=== PATIENT | male | born 1935 | race Caucasian/White ===

== ENCOUNTER 2017-05-13 09:04 | Emergency (ER) | payer MEDICARE ==
[~2017-05-13] VITALS: Ht 172.7 cm; Wt 74.0 kg
[~2017-05-13 09:04] MED LIST: AMLO5TAB96 PO; ASPI325T PO; FOLI1TAB PO; GEMF600 PO; LISI-357 PO; NIAS10004 PO; ROSU10 PO; TOPR25TA2 PO
[2017-05-13 09:08] VITALS: BP 156/71; PULSE 56; RESP 16; TEMP 97.6; O2SAT 96
[2017-05-13 09:37] VITALS: BP 130/76; PULSE 54; RESP 18; O2SAT 97; O2SAT 98
[2017-05-13 09:56] LABS: AUTOMATED NEUTROPHIL # 9.4 TH/MM3 (1.8-7.7); BASOPHIL # 0.1 TH/MM3 (0-0.2); BASOPHIL % 0.5 % (0.0-2.0); EOSINOPHIL # 0.6 TH/MM3 (0-0.4); EOSINOPHIL % 4.9 % (0.0-4.0); HEMATOCRIT 39.2 % (39.0-51.0); HEMO FLAGS DIFF FINAL; LYMPH % 8.3 % (9.0-44.0); MEAN CELL VOLUME 89.9 FL (80.0-100.0); MEAN CORPUSCULAR HEMOGLOBIN 30.1 PG (27.0-34.0); MEAN CORPUSCULAR HGB CONC 33.5 % (32.0-36.0); MONO % 8.2 % (0.0-8.0); NEUT % 78.1 % (16.0-70.0); PLATELET COUNT 214 TH/MM3 (150-450); RED BLOOD COUNT 4.36 MIL/MM3 (4.50-5.90); RED CELL DISTRIBUTION WIDTH 14.4 % (11.6-17.2)
[2017-05-13] MEDS ORDERED: SODIUM CHLORID 0.9% 500 ML INJ 500 ML IV ONE (10:00)
--- NOTE | 2017-05-13 10:00 | PD ---
HPI Chief Complaint: Pain: Acute or Chronic Time Seen by Provider: 09:32 Travel History International Travel<30 days: No Contact w/Intl Traveler<30days: No Traveled to known affect area: No History of Present Illness HPI 81-year-old male states for the past couple of months he has been feeling generally ill and not himself. He does state he has a little bit of congestion and notes pain all over. He states that he is not having any abdominal pain at this moment. He did tell nursing staff he felt a little short of breath but to me denies this. He denies any specific chest pain or fever as well. Quality is ill feeling. Severity he states all over. He states it is been worse over the past week. He denies specific modifying factors. He states he's had a heart attack before but it does not feel like this. [facility] Past Medical History Narrative Medical By records Cardiovascular Problems: Yes ([place] in 1997) Genitourinary: Yes (Kidney disease stage IV) Immunizations Current: Yes Past Surgical History Narrative Surgical By records Surgical History: No Previous Surgery Social History Alcohol Use: Yes (on occasion) Tobacco Use: No Substance Use: No Allergies-Medications (Allergen,Severity, Reaction): Coded Allergies: Iodine (Verified Allergy, Severe, 05/01/16) Shellfish (Verified Allergy, Unknown, 05/01/16) Reported Meds & Prescriptions Reported Meds & Active Scripts Active Reported Folate (Folic Acid) 1 Mg Tab 1 Mg PO HS Aspirin 325 Mg Tab 325 Mg PO HS Niaspan Er (Niacin) 1,000 Er Tab 2,000 Mg PO HS Lopid (Gemfibrozil) 600 Mg Tab 600 Mg PO HS Toprol Xl (Metoprolol Succinate) 25 Mg Tabcr 25 Mg PO HS Crestor (Rosuvastatin Calcium) 10 Mg Tab 10 Mg PO HS Lisinopril 5 mg (Lisinopril) 5 Mg Tab 5 Mg PO DAILY Norvasc (Amlodipine Besylate) 5 Mg Tab 5 Mg PO BID Review of Systems ROS Limitations: Poor Historian Except as stated in HPI: all other systems reviewed are Neg Physical Exam Exam Limitations: Poor Historian Narrative GENERAL: Well-nourished, well-developed patient. SKIN: Warm and dry. HEAD: Normocephalic and atraumatic. EYES: No injection or drainage. ENT: No nasal drainage noted. NECK: Supple, trachea midline. CARDIOVASCULAR: Regular rate and rhythm RESPIRATORY: Breath sounds equal bilaterally. No accessory muscle use. GASTROINTESTINAL: Abdomen soft, non-tender, nondistended. NEUROLOGICAL: Awake and alert. Moves all extremities. Normal speech. Data Data Last Documented VS Vital Signs Date Time Temp Pulse Resp B/P Pulse Ox O2 Delivery O2 Flow Rate FiO2 05/13/17 09:37 54 18 130/76 97 Room Air 05/13/17 09:08 97.6 Orders Complete Blood Count With Diff (05/13/17 09:32) Comprehensive Metabolic Panel (05/13/17 09:32) Urinalysis - C+S If Indicated (05/13/17 09:32) Lipase (05/13/17 09:32) Ct Abd/Pel W/O Iv Contrast (05/13/17 ) Iv Access Insert/Monitor (05/13/17 09:32) Oximetry (05/13/17 09:32) Chest, Single Ap (05/13/17 ) Influenzae A/B Antigen (05/13/17 09:39) Creatine Kinase (Cpk) (05/13/17 09:40) Electrocardiogram (05/13/17 ) Troponin I (05/13/17 09:47) Sodium Chlorid 0.9% 500 Ml Inj (Ns 500 M (05/13/17 10:00) Cath For Specimen (05/13/17 10:52) Labs Laboratory Tests Test 05/13/17 05/13/17 09:35 10:58 White Blood Count 12.0 TH/MM3 Red Blood Count 4.36 MIL/MM3 Hemoglobin 13.1 GM/DL Hematocrit 39.2 % Mean Corpuscular Volume 89.9 FL Mean Corpuscular Hemoglobin 30.1 PG Mean Corpuscular Hemoglobin 33.5 % Concent Red Cell Distribution Width 14.4 % Platelet Count 214 TH/MM3 Mean Platelet Volume 7.2 FL Neutrophils (%) (Auto) 78.1 % Lymphocytes (%) (Auto) 8.3 % Monocytes (%) (Auto) 8.2 % Eosinophils (%) (Auto) 4.9 % Basophils (%) (Auto) 0.5 % Neutrophils # (Auto) 9.4 TH/MM3 Lymphocytes # (Auto) 1.0 TH/MM3 Monocytes # (Auto) 1.0 TH/MM3 Eosinophils # (Auto) 0.6 TH/MM3 Basophils # (Auto) 0.1 TH/MM3 CBC Comment DIFF FINAL Differential Comment Sodium Level 142 MEQ/L Potassium Level 4.6 MEQ/L Chloride Level 111 MEQ/L Carbon Dioxide Level 23.8 MEQ/L Anion Gap 7 MEQ/L Blood Urea Nitrogen 53 MG/DL Creatinine 3.19 MG/DL Estimat Glomerular Filtration 19 ML/MIN Rate Random Glucose 121 MG/DL Calcium Level 9.1 MG/DL Total Bilirubin 0.4 MG/DL Aspartate Amino Transf 17 U/L (AST/SGOT) Alanine Aminotransferase 23 U/L (ALT/SGPT) Alkaline Phosphatase 78 U/L Total Creatine Kinase 99 U/L Troponin I LESS THAN 0.02 NG/ML Total Protein 6.6 GM/DL Albumin 3.4 GM/DL Lipase 388 U/L Urine Color YELLOW Urine Turbidity CLEAR Urine pH 5.5 Urine Specific Maskell 1.011 Urine Protein 100 mg/dL Urine Glucose (UA) NEG mg/dL Urine Ketones NEG mg/dL Urine Occult Blood NEG Urine Nitrite NEG Urine Bilirubin NEG Urine Urobilinogen LESS THAN 2.0 MG/DL Urine Leukocyte Esterase NEG Urine RBC 1 /hpf Urine WBC 1 /hpf Urine Bacteria RARE /hpf Urine Mucus FEW /lpf Microscopic Urinalysis Comment CULT NOT INDICATED MDM Medical Decision Making Medical Screen Exam Complete: Yes Emergency Medical Condition: Yes Medical Record Reviewed: Yes (past history confirmed) Interpretation(s) EKG is sinus bradycardia at [address] segment elevation or depression, T wave inversion V1 V2 CBC & BMP Diagram 05/13/17 09:35 Last 24 hours Impressions Chest X-Ray 05/13/17 0000 Signed Impressions: Service Date/Time: Saturday, May 13, 2017 10:04 - CONCLUSION: 1. No acute cardiopulmonary disease. Chemo Rm MD Abdomen/Pelvis CT 05/13/17 0000 Signed Impressions: Service Date/Time: Saturday, May 13, 2017 10:45 - CONCLUSION: Multiple masses scattered throughout the kidneys including one hyperdense nodule midpole left kidney likely complicated cyst. Neither collecting system or ureter is dilated. No active ureteral stone is seen. I would question a ureterocele at the right UPJ. Markos Maria MD Differential Diagnosis UTI, anemia, worsening renal failure, electrolyte abnormality, rhabdomyolysis, pneumonia, stone Narrative Course Will check blood work, urinalysis, CT abdomen, chest x-ray and reevaluate ed workup with mild isolated leukocytosis without other findings. Patient has been having these symptoms over the past couple of months. He is already followed with his primary he states 1 week ago and had blood work done. Patient denies any new complaints, all questions answered. Patient knows that follow up is incumbent on them and to return to the emergency room immediately if new or worsening symptoms develop. Patient given strict return precautions, vitals reviewed and are normal, agrees to further workup as an outpatient. Diagnosis Primary Impression: General ill feeling Patient Instructions: General Instructions Additional Instructions: return as needed, follow with primary tommorrow Med/Other Pt SpecificInfo: No Change to Meds Disposition: 01 DISCHARGE HOME Condition: Stable Phylicia Huff MD May 13, 2017 10:00
[2017-05-13 10:18] LABS: ANION GAP 7 MEQ/L (5-15); AST (GOT) 17 U/L (15-37); BICARBONATE 23.8 MEQ/L (21.0-32.0); BLOOD UREA NITROGEN 53 MG/DL (7-18); CHLORIDE 111 MEQ/L (98-107); GLOMERULAR FILTRATION RATE 19 ML/MIN (>89); POTASSIUM 4.6 MEQ/L (3.5-5.1); SODIUM (NA) 142 MEQ/L (136-145)
[2017-05-13 10:20] LABS: ALT (GPT) 23 U/L (12-78)
[2017-05-13 10:21] LABS: ALKALINE PHOSPHATASE 78 U/L (45-117); TOTAL BILIRUBIN ADULT 0.4 MG/DL (0.2-1.0)
--- NOTE | 2017-05-13 10:37 | RADRPT ---
EXAM DATE/TIME: 05/13/2017 10:04 [facility] COMPARISON: CHEST SINGLE AP, May 01, 2016, 21:20. INDICATIONS : Short of breath. MEDICAL HISTORY : Myocardial infarction. Stage 4 kidney failure. SURGICAL HISTORY : coronary artery stents x2 ENCOUNTER: Initial ACUITY: 1 day PAIN SCORE: 0/10 LOCATION: Bilateral chest FINDINGS: A single view of the chest demonstrates the lungs to be symmetrically aerated without evidence of mas s, infiltrate or effusion. The cardiomediastinal contours are unremarkable. Osseous structures are intact. CONCLUSION: 1. No acute cardiopulmonary disease. Chemo Rm MD on May 13, 2017 at 10:34 Board Certified Radiologist. This report was verified electronically.
[2017-05-13 11:13] LABS: BACTERIA, URINE RARE /hpf; BLOOD, URINE NEG (NEG); GLUCOSE,URINE NEG (NEG); KETONE, URINE NEG (NEG); MUCUS URINE FEW /lpf (OCC); NITRITE,URINE NEG (NEG); PH, URINE 5.5 (5.0-8.5); URINE COLOR YELLOW (YELLW/STRAW)
[2017-05-13 11:16] LABS: COMMENT (UR) CULT NOT INDICATED; CULTURE IF INDICATED CULT NOT INDICATED
--- NOTE | 2017-05-13 11:30 | RADRPT ---
EXAM DATE/TIME: 05/13/2017 10:45 [facility] COMPARISON: No previous studies available for comparison. INDICATIONS : Abdominal pain. ORAL CONTRAST: No oral contrast ingested. RADIATION DOSE: 7.68 CTDIvol (mGy) MEDICAL HISTORY : Cardiovascular disease. Renal disease, end stage. SURGICAL HISTORY : None. ENCOUNTER: Initial ACUITY: 1 day PAIN SCALE: 0/10 LOCATION: Abdomen TECHNIQUE: Volumetric scanning of the abdomen and pelvis was performed. Using automated exposure control and adjustment of the mA and/or kV according to patient size, radiation dose was kept as low as reasonably achievable to obtain optimal diagnostic quality images. DICOM format image data is av ailable electronically for review and comparison. FINDINGS: CT scan without contrast demonstrates there is some fullness of the GE junction, difficult to rule ou t a hiatal hernia. There are multiple hyperdense masses scattered throughout both kidneys likely benign cysts. There is one hyperdense nodule midpole left kidney likely a dense cyst. That measures 1.7 cm x 2.1 cm across . Neither of the renal collecting systems are appreciably dilated. I do not see any calcifications along the course of either ureter. There may be a small ureterocele on the right. There is atherosclerotic disease without evidence of aneurysm. Mild degenerative arthritis lower lum bar spine. CONCLUSION: Multiple masses scattered throughout the kidneys including one hyperdense nodule midpole left kidney likely complicated cyst. Neither collecting system or ureter is dilated. No active ureteral stone i s seen. I would question a ureterocele at the right UPJ. Markos Maria MD on May 13, 2017 at 11:17 Board Certified Radiologist. This report was verified electronically.
--- NOTE | 2017-05-13 14:01 | EKG ---
Date Performed: 05/13/2017 Time Performed: 09:51:50 PTAGE: 81 years EKG: SINUS BRADYCARDIA LOW QRS VOLTAGE IN EXTREMITY LEADS SEPTAL MYOCARDIAL INFARCTION MODERATE T-WAVE ABNORMALITY, CONSIDER ANTERIOR ISCHEMIA ABNORMAL ECG PREVIOUS TRACING : 05/13/2017 09.49 Compared to the previous tracing, T wave changes anteriorly are new DOCTOR: Deshawn Armenta Interpretating Date/Time 05/13/2017 13:59:23
== END 2017-05-13 12:15 | disposition home or self-care (01) ==
LOC: NEPC 09:04
DX: D72.829 Elevated white blood cell count, unspecified (principal); R00.1 Bradycardia, unspecified; N18.4 Chronic kidney disease, stage 4 (severe); I21.3 ST elevation (STEMI) myocardial infarction of unspecified site; R94.31 Abnormal electrocardiogram [ECG] [EKG]; I25.2 Old myocardial infarction; Z79.82 Long term (current) use of aspirin; Z79.899 Other long term (current) drug therapy
CPT/HCPCS: 71010; 74176; 80053; 81001; 82550; 83690; 84484; 85025; 87804; 93005; 99285; J7040; P9612

== ENCOUNTER 2017-06-06 17:46 | Observation (INO) | payer MEDICARE ==
[~2017-06-06] VITALS: Ht 177.8 cm; Wt 75.0 kg
[2017-06-06 17:47] VITALS: BP 202/91; PULSE 64; RESP 12; TEMP 98.6; O2SAT 98
--- NOTE | 2017-06-06 17:58 | PD ---
Physical Exam Date Seen by Provider: Jun 06, 2017 Time Seen by Provider: 17:55 Data Data Last Documented VS Vital Signs Date Time Temp Pulse Resp B/P Pulse Ox O2 Delivery O2 Flow Rate FiO2 06/06/17 17:47 98.6 64 12 202/91 98 MDM Supervised Visit with TANYA: No Narrative Course 82 YO M with complaint of SOB and CP. Onset this AM. States "I feel better now." Pain /10. Denies long period of immobilization. ASA daily. HX [place], CKD stage 4. [employer] Daniella. Vitals reviewed. Patient seen in triage, awaiting priority bed placement. Yue White Jun 06, 2017 17:58
[2017-06-06 18:45] LABS: AUTOMATED NEUTROPHIL # 7.8 TH/MM3 (1.8-7.7); BASOPHIL # 0.1 TH/MM3 (0-0.2); BASOPHIL % 0.5 % (0.0-2.0); EOSINOPHIL # 0.5 TH/MM3 (0-0.4); EOSINOPHIL % 4.6 % (0.0-4.0); HEMATOCRIT 39.3 % (39.0-51.0); HEMO FLAGS DIFF FINAL; LYMPH % 12.6 % (9.0-44.0); LYMPHOCYTE # 1.4 TH/MM3 (1.0-4.8); MEAN CELL VOLUME 88.9 FL (80.0-100.0); MEAN CORPUSCULAR HEMOGLOBIN 30.9 PG (27.0-34.0); MEAN CORPUSCULAR HGB CONC 34.8 % (32.0-36.0); MONO % 10.3 % (0.0-8.0); PLATELET COUNT 201 TH/MM3 (150-450); RED BLOOD COUNT 4.42 MIL/MM3 (4.50-5.90); WHITE BLOOD COUNT 10.8 TH/MM3 (4.0-11.0)
[2017-06-06 19:03] LABS: ANION GAP 8 MEQ/L (5-15); BICARBONATE 23.7 MEQ/L (21.0-32.0); BLOOD UREA NITROGEN 64 MG/DL (7-18); CHLORIDE 107 MEQ/L (98-107); GLOMERULAR FILTRATION RATE 17 ML/MIN (>89); POTASSIUM 4.7 MEQ/L (3.5-5.1); SODIUM (NA) 139 MEQ/L (136-145)
--- NOTE | 2017-06-06 19:46 | PD ---
HPI Chief Complaint: Chest Pain Time Seen by Provider: 19:46 Travel History International Travel<30 days: No Contact w/Intl Traveler<30days: No Traveled to known affect area: No History of Present Illness HPI 82 year old male with history of CAD, stent placement 2 in 1997, CKD4, hypertension presents to the ED for evaluation of acute onset left sided pain inferior to his scapula. Pt states it began this morning while he was golfing. Was severe at that time with associated shortness of breath and mild nausea. He states it has persisted intermittently throughout the day but seems to not be as severe. Currently he states it is very dull intermittent pain when it does occur rating it a 1 out of 10. It is not reproducible with movement. Patient has had no injury. Denies any abdominal pain. No changes in bowel or bladder. No recent illnesses, fever, or chills. No other symptoms to report. PFSH Past Medical History Cardiovascular Problems: Yes Genitourinary: Yes (Kidney disease stage IV) Immunizations Current: Yes Social History Alcohol Use: Yes (on occasion) Tobacco Use: No Substance Use: No Allergies-Medications (Allergen,Severity, Reaction): Coded Allergies: Iodine (Verified Allergy, Severe, 05/01/16) Shellfish (Verified Allergy, Unknown, 05/01/16) Reported Meds & Prescriptions Reported Meds & Active Scripts Active Reported Isosorbide Mononitrate 20 Mg Tab 20 Mg PO BID Take 2 doses 7 hours apart. Hydralazine (Hydralazine HCl) 100 Mg Tab 50 Mg PO BID Take with meals Coreg (Carvedilol) 6.25 Mg Tab 6.25 Mg PO BID Crestor (Rosuvastatin Calcium) 10 Mg Tab 10 Mg PO HS Lisinopril 5 Mg Tab 5 Mg PO DAILY Folic Acid 400 Mcg Tab 1 Mg PO HS Aspirin 325 Mg Tab 325 Mg PO HS Norvasc (Amlodipine Besylate) 5 Mg Tab 5 Mg PO BID Review of Systems Except as stated in HPI: all other systems reviewed are Neg Physical Exam Narrative GENERAL: Well-nourished male patient, in no acute distress SKIN: Focused skin assessment warm/dry. HEAD: Atraumatic. Normocephalic. EYES: Pupils equal and round. No scleral icterus. No injection or drainage. ENT: No nasal bleeding or discharge. Mucous membranes pink and moist. NECK: Trachea midline. No JVD. CARDIOVASCULAR: Regular rate and rhythm. RESPIRATORY: No accessory muscle use. Clear to auscultation. Breath sounds equal bilaterally. GASTROINTESTINAL: Abdomen soft, non-tender, nondistended. Hepatic and splenic margins not palpable. MUSCULOSKELETAL: No obvious deformities. No clubbing. No cyanosis. No edema. NEUROLOGICAL: Awake and alert. No obvious cranial nerve deficits. Motor grossly within normal limits. Normal speech. PSYCHIATRIC: Appropriate mood and affect; insight and judgment normal. Data Data Last Documented VS Vital Signs Date Time Temp Pulse Resp B/P Pulse Ox O2 Delivery O2 Flow Rate FiO2 06/06/17 19:57 72 16 97 Room Air 06/06/17 19:54 98.5 178/91 Orders Electrocardiogram (06/06/17 17:59) Complete Blood Count With Diff (06/06/17 17:59) Basic Metabolic Panel (Bmp) (06/06/17 17:59) Ckmb (Isoenzyme) Profile (06/06/17 17:59) Troponin I (06/06/17 17:59) Lipase (06/06/17 19:55) Chest, Single Ap (06/06/17 ) Us Abdomen Gallbladder (06/06/17 ) Morphine Inj (Morphine Inj) (06/06/17 20:45) Ondansetron Inj (Zofran Inj) (06/06/17 20:45) Admit Order (Ed Use Only) (06/06/17 21:59) Activity Bed Rest With Brp (06/06/17 21:59) Vital Signs (Adult) Q4H (06/06/17 21:59) Cardiac Rhythm .As Directed (06/06/17 21:59) Notify Dr: Other .PRN (06/06/17 21:59) Notify Dr. Parameters (06/06/17 21:59) Resp Oxygen Nasal Cannula (06/06/17 ) Diet Npo (06/07/17 Breakfast) Ckmb (Isoenzyme) Profile (06/06/17 21:59) Ckmb (Isoenzyme) Profile (06/07/17 00:59) Troponin I (06/06/17 21:59) Troponin I (06/07/17 00:59) Electrocardiogram (06/06/17 21:59) Electrocardiogram (06/07/17 00:59) ^ Obtain (06/06/17 21:59) Sodium Chloride 0.9% Flush (Ns Flush) (06/06/17 22:00) Sodium Chloride 0.9% Flush (Ns Flush) (06/07/17 09:00) Acetaminophen (Tylenol) (06/06/17 22:00) Ondansetron Inj (Zofran Inj) (06/06/17 22:00) Nitroglycerin Sl (Nitrostat Sl) (06/06/17 22:00) Aspirin Chew (Aspirin Chew) (06/06/17 22:00) Departmental Secretary / Telemetry DIETER.Q8H (06/06/17 21:59) Labs Laboratory Tests Test 06/06/17 18:09 White Blood Count 10.8 TH/MM3 Red Blood Count 4.42 MIL/MM3 Hemoglobin 13.7 GM/DL Hematocrit 39.3 % Mean Corpuscular Volume 88.9 FL Mean Corpuscular Hemoglobin 30.9 PG Mean Corpuscular Hemoglobin 34.8 % Concent Red Cell Distribution Width 14.0 % Platelet Count 201 TH/MM3 Mean Platelet Volume 7.2 FL Neutrophils (%) (Auto) 72.0 % Lymphocytes (%) (Auto) 12.6 % Monocytes (%) (Auto) 10.3 % Eosinophils (%) (Auto) 4.6 % Basophils (%) (Auto) 0.5 % Neutrophils # (Auto) 7.8 TH/MM3 Lymphocytes # (Auto) 1.4 TH/MM3 Monocytes # (Auto) 1.1 TH/MM3 Eosinophils # (Auto) 0.5 TH/MM3 Basophils # (Auto) 0.1 TH/MM3 CBC Comment DIFF FINAL Differential Comment Sodium Level 139 MEQ/L Potassium Level 4.7 MEQ/L Chloride Level 107 MEQ/L Carbon Dioxide Level 23.7 MEQ/L Anion Gap 8 MEQ/L Blood Urea Nitrogen 64 MG/DL Creatinine 3.48 MG/DL Estimat Glomerular Filtration 17 ML/MIN Rate Random Glucose 109 MG/DL Calcium Level 9.1 MG/DL Total Creatine Kinase 100 U/L Troponin I LESS THAN 0.02 NG/ML Lipase 402 U/L MDM Medical Decision Making Medical Screen Exam Complete: Yes Emergency Medical Condition: Yes Medical Record Reviewed: Yes Differential Diagnosis ACS versus visceral pain versus pleuritic pain versus chest wall pain versus musculoskeletal pain Narrative Course 82-year-old male presents to emergency department for evaluation of a pain inferior to his left scapula with associated shortness of breath and nausea. The pain is not reproducible on assessment. Patient appears overall well and without distress. Patient has history of cardiac disease. Patient content director is Dr. Brewer. Laboratory Tests Test 06/06/17 18:09 White Blood Count 10.8 TH/MM3 Red Blood Count 4.42 MIL/MM3 Hemoglobin 13.7 GM/DL Hematocrit 39.3 % Mean Corpuscular Volume 88.9 FL Mean Corpuscular Hemoglobin 30.9 PG Mean Corpuscular Hemoglobin 34.8 % Concent Red Cell Distribution Width 14.0 % Platelet Count 201 TH/MM3 Mean Platelet Volume 7.2 FL Neutrophils (%) (Auto) 72.0 % Lymphocytes (%) (Auto) 12.6 % Monocytes (%) (Auto) 10.3 % Eosinophils (%) (Auto) 4.6 % Basophils (%) (Auto) 0.5 % Neutrophils # (Auto) 7.8 TH/MM3 Lymphocytes # (Auto) 1.4 TH/MM3 Monocytes # (Auto) 1.1 TH/MM3 Eosinophils # (Auto) 0.5 TH/MM3 Basophils # (Auto) 0.1 TH/MM3 CBC Comment DIFF FINAL Differential Comment Sodium Level 139 MEQ/L Potassium Level 4.7 MEQ/L Chloride Level 107 MEQ/L Carbon Dioxide Level 23.7 MEQ/L Anion Gap 8 MEQ/L Blood Urea Nitrogen 64 MG/DL Creatinine 3.48 MG/DL Estimat Glomerular Filtration 17 ML/MIN Rate Random Glucose 109 MG/DL Calcium Level 9.1 MG/DL Total Creatine Kinase 100 U/L Troponin I LESS THAN 0.02 NG/ML Lipase 402 U/L Last Impressions Gall Bladder Ultrasound 06/06/17 0000 Signed Impressions: Service Date/Time: Tuesday, June 06, 2017 20:21 - CONCLUSION: 1. No gallstones or biliary ductal dilatation. Multiple right renal cysts. Feroz Reich MD Chest X-Ray 06/06/17 0000 Signed Impressions: Service Date/Time: Tuesday, June 06, 2017 20:02 - CONCLUSION: No acute disease. No significant change has occurred. Feroz Reich MD Due to patient's history of cardiac disease, comorbidities, and atypical chest pain presentation, patient will be admitted observation to the chest pain center for further evaluation. Plan is discussed with the patient who is in agreement with this plan of care. Diagnosis Primary Impression: Atypical chest pain Additional Impression: Chronic kidney disease Qualified Code: N18.4 - Stage 4 chronic kidney disease Admitting Information Admitting Physician Requests: Observation Condition: Stable Precious Milner Jun 06, 2017 19:46
[2017-06-06] MEDS ORDERED: LISI-519 PO (19:51)
[2017-06-06] MEDS ORDERED: ROSU10 PO (19:51)
[2017-06-06] MEDS ORDERED: AMLO5 PO (19:51)
[2017-06-06] MEDS ORDERED: ASPI325T PO (19:51)
[2017-06-06] MEDS ORDERED: FOLI400T PO (19:51)
[2017-06-06] MEDS ORDERED: CARV6.25 PO (19:53)
[2017-06-06] MEDS ORDERED: HYDR-3801 PO (19:53)
[2017-06-06 19:54] VITALS: BP 178/91; PULSE 64; RESP 16; TEMP 98.5; O2SAT 97
[2017-06-06] MEDS ORDERED: ISOS20TA PO (20:18)
[2017-06-06] MEDS ORDERED: ONDANSETRON HCL 4 MG/2 ML VIAL IV PUSH ONE (20:45)
[2017-06-06] MEDS ORDERED: MORPHINE SULFATE 4 MG/ML INJ IV PUSH ONE (20:45)
--- NOTE | 2017-06-06 20:58 | RADRPT ---
EXAM DATE/TIME: 06/06/2017 20:02 [facility] COMPARISON: CHEST SINGLE AP, May 13, 2017, 10:04. INDICATIONS : Chest pain. MEDICAL HISTORY : None. SURGICAL HISTORY : None. ENCOUNTER: Initial ACUITY: 2 months PAIN SCORE: 1/10 LOCATION: Left chest Backside FINDINGS: A single view of the chest demonstrates the lungs to be symmetrically aerated without evidence of mas s, infiltrate or effusion. The cardiomediastinal contours are unremarkable. Osseous structures are intact. CONCLUSION: No acute disease. No significant change has occurred. Feroz Reich MD on June 06, 2017 at 20:57 Board Certified Radiologist. This report was verified electronically.
--- NOTE | 2017-06-06 21:13 | RADRPT ---
EXAM DATE/TIME: 06/06/2017 20:21 [facility] COMPARISON: No previous studies available for comparison. INDICATIONS : Nausea and vomiting. MEDICAL HISTORY : Hypercholesterolemia. Hypertension. Myocardial infarction. Kidney disease, stage IV. SURGICAL HISTORY : CABG. TURP. ENCOUNTER: Initial ACUITY: 1 day PAIN SCORE: 2/10 LOCATION: Right upper quadrant MEASUREMENTS: LIVER: 15.9 cm length COMMON DUCT: 3 mm RIGHT KIDNEY: 10.2 x 4.6 x 5.0 cm FINDINGS: LIVER: Normal echotexture without focal lesion or ductal dilatation. COMMON DUCT: No intraluminal mass or stone visualized. GALLBLADDER: Contains no stones, demonstrates no wall thickening or pericholecystic fluid. PANCREAS: The visualized portions are within normal limits. RIGHT KIDNEY: No evidence of hydronephrosis, stone, or mass. Multiple cysts measuring up to 2.5 cm upper pole and 1.4 cm lower pole. CONCLUSION: 1. No gallstones or biliary ductal dilatation. Multiple right renal cysts. Feroz Reich MD on June 06, 2017 at 21:09 Board Certified Radiologist. This report was verified electronically.
[2017-06-06 21:50] LABS: CREATINE KINASE 100 U/L (39-308)
[2017-06-06] MEDS ORDERED: ACETAMINOPHEN 500 MG CPLT PO PRN (22:00)
[2017-06-06] MEDS ORDERED: NITROGLYCERIN 0.4 MG SL 25 TABS/BTL SL PRN (22:00)
[2017-06-06] MEDS ORDERED: ASPIRIN 81 MG CHEW TAB PO ONE (22:00)
[2017-06-06] MEDS ORDERED: ONDANSETRON HCL 4 MG/2 ML VIAL IV PRN (22:00)
[2017-06-06] MEDS ORDERED: SODIUM CHLORIDE 0.9% FLUSH 10 ML FLUSH IV FLUSH PRN (22:00)
[2017-06-06 22:26] VITALS: O2SAT 97
[2017-06-06 22:29] VITALS: BP 162/73
[2017-06-06 23:02] VITALS: BP 161/83; PULSE 69; RESP 18; TEMP 97.9; O2SAT 97
[2017-06-07] VITALS (9 sets, daily range): BP systolic 134–172; BP diastolic 72–92; PULSE 64–72; RESP 18; TEMP 97.9–98.4; O2SAT 96–98
[2017-06-07 01:56] LABS: CREATINE KINASE 102 U/L (39-308)
[2017-06-07 02:08] LABS: CKMB 2.9 NG/ML (0.5-3.6)
--- NOTE | 2017-06-07 08:54 | HHI.HP ---
HPI Primary Care Physician hCu Britton MD Chief Complaint Left scapular pain History of Present Illness 82-year-old male with history of coronary artery disease including 2 cardiac stents, reported CKD stage 4, and hypertension presents to emergency room for further evaluation of left scapula pain and dyspnea. Onset yesterday morning 8 AM during warmup before golf. Location left scapular area. Described as a dull ache. Denying sharp pain. Cannot remember if pain came on quickly or gradually. No radiation. Associated symptoms included dyspnea. Endorses exertional dyspnea for many months accompanied with fatigue stating yesterday episode more severe. Denied nausea, vomiting, or diaphoresis. No known precipitating or relieving factors. He did not complete golf game, returning home to rest. Dyspnea episode lasted 2 hours. Scapula pain waxed and waned in intensity and frequency throughout day. Reports similar discomforts over the past few months with no predicability, varying in intensity and duration. Review of Systems General: Fatigue and generalized malaise for months. Relates fatigue and malaise to chronic kidney disease. No weakness, fever, chills, or recent illness. HEENT: No MEDLEY, no vision changes CV: As stated above. Denies any current chest pain, pressure, or left scapular pain. RESP: Exertional dyspnea for "many months." Yesterday's episode of dyspnea more severe than other episodes and breathing did not improved for nearly 2 hours. Currently no SOB. No cough, wheeze, or recent URI. GI: No nausea, vomiting, bowel changes, diarrhea, constipation, or pain. : No dysuria. Turp x2 EXT: No lower leg edema MS: No discomfort or change in ROM NEURO: No difficulty with balance, LOC, motor/sensory deficits PSYCH: No anxiety, depression, or situation stress Past Family Social History Allergies: Coded Allergies: Iodine (Verified Allergy, Severe, 05/01/16) Shellfish (Verified Allergy, Unknown, 05/01/16) Past Medical History CAD, x2 cardiac stents, CKD stage 4, HTN, [place] Past Surgical History TURPx2, skin cancer removal, bilateral cataract surgery Reported Medications Active Reported Isosorbide Mononitrate 30 mg QD Hydralazine (Hydralazine HCl) 100 Mg Tab 50 Mg PO BID Take with meals Coreg (Carvedilol) 6.25 Mg Tab 6.25 Mg PO BID Crestor (Rosuvastatin Calcium) 10 Mg Tab 10 Mg PO HS Lisinopril 10 Mg PO DAILY Folic Acid 400 Mcg Tab 1 Mg PO HS Aspirin 325 Mg Tab 325 Mg PO HS Norvasc (Amlodipine Besylate) 5 Mg Tab 5 Mg PO BID Vitamin D3 PO daily Active Ordered Medications Current Medications Medications (Trade) Dose Ordered Sig/Víctor Route Start Time Stop Time Status Last Admin (NS Flush) 2 ml UNSCH PRN IV FLUSH 06/06/17 22:00 (NS Flush) 2 ml BID IV FLUSH 06/07/17 09:00 (Tylenol) 500 mg Q4H PRN PO 06/06/17 22:00 (Zofran Inj) 4 mg Q6H PRN IV 06/06/17 22:00 (Nitrostat Sl) 0.4 mg Q5M PRN SL 06/06/17 22:00 Social History Known CAD, HTN, and hyperlipidemia. No known diabetes. Quit smoking 1971. Denies any alcohol or illegal drug use. Attempts to live a healthy and active lifestyle, although states over the last few months have decreased. Retired, . Past Cardiac Testing Nuclear treadmill 12-18months ago. 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 Pastrana) Conculsion 1. Mild diffuse disease of LAD artery. 2. Mild disease of circumflex and right coronary arteries co-dominate vessels. 3. Patent stent in obtuse marginal branch of left circumflex. Physical Exam Vital Signs Vital Signs Date Time Temp Pulse Resp B/P Pulse Ox O2 Delivery O2 Flow Rate FiO2 06/07/17 07:24 97.9 67 18 159/90 96 06/07/17 04:29 67 06/07/17 03:35 98.4 64 18 134/84 96 06/07/17 00:31 72 06/06/17 23:02 97.9 69 18 161/83 97 06/06/17 22:29 66 16 162/73 99 06/06/17 22:26 97 06/06/17 19:57 72 16 97 Room Air 06/06/17 19:54 98.5 64 16 178/91 97 Room Air 06/06/17 17:47 98.6 64 12 202/91 98 Physical Exam GENERAL: Alert WN, WD, NAD, pleasant, elderly male who appears younger than stated age HEAD: NC, AT NECK: Supple, no masses, trachea midline CV: RRR, 2/6 systolic murmur heard best at right sternal border, No rub, no gallop, no JVD, S1-S2 no S3-S4. Right carotid bruit most likely referred sound from systolic murmur. No femoral bruits or left carotid bruit heard. RESP: Clear lungs throughout bilateral, no crackles, wheeze, rhonchi, symmetrical chest rise, nonlabored, able to speak in full sentences ABD: Soft, NT, ND, no masses, positive bowel tones EXT: Pulses +24, no dependent edema MS: Normal tone 4 extremities, nontender, no obvious deformities, full range of motion NEURO: CN II through CN XII grossly intact, motor strength 5/5 PSYCH: A+O 3, pleasant affect, appropriate speech, appropriate mood and affect , insight and judgment SKIN: Normal turgor, normal texture, no lesions, no rashes, brisk cap refill, even hair distribution Laboratory Laboratory Tests Test 06/06/17 06/06/17 06/07/17 18:09 22:20 01:00 White Blood Count 10.8 Red Blood Count 4.42 Hemoglobin 13.7 Hematocrit 39.3 Mean Corpuscular Volume 88.9 Mean Corpuscular Hemoglobin 30.9 Mean Corpuscular Hemoglobin 34.8 Concent Red Cell Distribution Width 14.0 Platelet Count 201 Mean Platelet Volume 7.2 Neutrophils (%) (Auto) 72.0 Lymphocytes (%) (Auto) 12.6 Monocytes (%) (Auto) 10.3 Eosinophils (%) (Auto) 4.6 Basophils (%) (Auto) 0.5 Neutrophils # (Auto) 7.8 Lymphocytes # (Auto) 1.4 Monocytes # (Auto) 1.1 Eosinophils # (Auto) 0.5 Basophils # (Auto) 0.1 CBC Comment DIFF FINAL Differential Comment Sodium Level 139 Potassium Level 4.7 Chloride Level 107 Carbon Dioxide Level 23.7 Anion Gap 8 Blood Urea Nitrogen 64 Creatinine 3.48 Estimat Glomerular Filtration 17 Rate Random Glucose 109 Calcium Level 9.1 Total Creatine Kinase 100 98 102 Troponin I LESS THAN 0.02 0.02 0.02 Lipase 402 Creatine Kinase MB 2.9 Result Diagram: 06/06/17180806/06/171808 Imaging Last Impressions Gall Bladder Ultrasound 06/06/17 0000 Signed Impressions: Service Date/Time: Tuesday, June 06, 2017 20:21 - CONCLUSION: 1. No gallstones or biliary ductal dilatation. Multiple right renal cysts. Feroz Reich MD Chest X-Ray 06/06/17 0000 Signed Impressions: Service Date/Time: Tuesday, June 06, 2017 20:02 - CONCLUSION: No acute disease. No significant change has occurred. Feroz Reich MD Course EKG NSR, Q waves septally, otherwise to st segment changes Assessment and Plan Assessment and Plan #1 Chest pain-admitted to chest pain center. Ruled out with 3 sets of EKGs, cardiac enzymes, and monitored overnight. Seen and evaluated by Dr. Winston Roth. 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 Dr. Pastrana not on-call this weekend. No further cardiac testing at this time. Instructed patient to call Dr. Pastrana's office on Friday to notify him of admission and to schedule an appointment. Discussed in length intermittent scapular discomfort may be cardiac related. 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 Instructed to avoid strenuous activity until evaluated by Dr. Pastrana. #2 Hypertension-continue hydralazine, lisinopril, Norvasc #3 History of CADcontinue isosorbide, Carvedilol, aspirin, and rosuvastatin. Nitroglycerin sublingual when necessary for angina prescription given at discharge. Instructions on use provided. #4 CKD-continue antihypertensive medications, creatinine level appears to be at baseline when compared with last to creatinine levels, keep all follow-up appointments with Dr. Arellano. Instructed to return to ER for returning symptoms and encouraged to use nitro tablets if pain returns. Rosie Chavarria Jun 07, 2017 08:53
[2017-06-07] MEDS ORDERED: SODIUM CHLORIDE 0.9% FLUSH 10 ML FLUSH IV FLUSH SCH (09:00)
[2017-06-07] MEDS ORDERED: ISOS30TA3 PO (09:40)
[2017-06-07] MEDS ORDERED: LISI10TA3 PO (09:41)
[2017-06-07] MEDS ORDERED: hydrALAZINE HCL 50 MG TAB PO SCH (11:00)
[2017-06-07] MEDS ORDERED: LISINOPRIL 10 MG TAB PO SCH (11:00)
[2017-06-07] MEDS ORDERED: amLODIPine BESYLATE 5 MG TAB PO SCH (11:00)
[2017-06-07] MEDS ORDERED: ISOSORBIDE MONONITRATE 30 MG TAB PO SCH (11:00)
[2017-06-07] MEDS ORDERED: CARVEDILOL 6.25 MG TAB PO SCH (11:00)
--- NOTE | 2017-06-07 12:08 | HHI.DCPOC ---
Discharge Care Plan Diagnosis: (1) Atypical chest pain (2) Hx of coronary artery disease (3) Chronic kidney disease (4) Hypertension Goals to Promote Your Health * To prevent worsening of your condition and complications * To maintain your health at the optimal level Directions to Meet Your Goals Take your medications as prescribed Follow your dietary instruction Follow activity as directed Keep your appointments as scheduled Take your immunizations and boosters as scheduled If your symptoms worsen call your PCP, if no PCP go to Urgent Care Center or Emergency Room Smoking is Dangerous to Your Health. Avoid second hand smoke Call the 24-hour hour crisis hotline for domestic abuse at Rosie Chavarria Jun 07, 2017 12:08
[2017-06-07] MEDS ORDERED: NITR1SUB3 SL (12:16)
--- NOTE | 2017-06-07 14:55 | EKG ---
Date Performed: 06/07/2017 Time Performed: 01:05:19 PTAGE: 82 years EKG: Sinus rhythm LOW QRS VOLTAGE IN EXTREMITY LEADS ANTEROSEPTAL MYOCARDIAL INFARCTION ABNORMAL ECG PREVIOUS TRACING : 06/06/2017 22.16 Since previous tracing, no significant change noted DOCTOR: Winston Roth Interpretating Date/Time 06/07/2017 14:54:13
--- NOTE | 2017-06-07 14:56 | EKG ---
Date Performed: 06/06/2017 Time Performed: 22:16:29 PTAGE: 82 years EKG: Sinus rhythm LOW QRS VOLTAGE IN EXTREMITY LEADS ANTEROSEPTAL MYOCARDIAL INFARCTION ABNORMAL ECG PREVIOUS TRACING : 06/06/2017 18.04 Since previous tracing, no significant change noted DOCTOR: Winston Roth Interpretating Date/Time 06/07/2017 14:54:45
--- NOTE | 2017-06-07 14:59 | EKG ---
Date Performed: 06/06/2017 Time Performed: 18:04:55 PTAGE: 82 years EKG: Sinus rhythm WITH OCCASIONAL VENTRICULAR PREMATURE COMPLEXES LOW QRS VOLTAGE IN EXTREMITY LEADS SEPTAL MYOCARDIAL INFARCTION ABNORMAL ECG PREVIOUS TRACING : 05/13/2017 09.51 Since previous tracing, no significant change noted DOCTOR: Winston Roth Interpretating Date/Time 06/07/2017 14:58:05
[2017-06-07] MEDS ORDERED: ASPIRIN 325 MG TAB PO SCH (21:00)
== END 2017-06-07 13:19 | disposition home or self-care (01) ==
LOC: NEPC 17:46 → NEDA 22:02 → NEPFCDU 22:45
DX: R07.89 Other chest pain (principal); R06.00 Dyspnea, unspecified; R53.83 Other fatigue; R06.02 Shortness of breath; R94.31 Abnormal electrocardiogram [ECG] [EKG]; R11.2 Nausea with vomiting, unspecified; I25.119 Atherosclerotic heart disease of native coronary artery with unspecified angina pectoris; I12.9 Hypertensive chronic kidney disease with stage 1 through stage 4 chronic kidney disease, or unspecified chronic kidney disease; N18.4 Chronic kidney disease, stage 4 (severe); E78.5 Hyperlipidemia, unspecified; E78.00 Pure hypercholesterolemia, unspecified; I25.2 Old myocardial infarction; N28.1 Cyst of kidney, acquired; Z95.5 Presence of coronary angioplasty implant and graft; Z85.828 Personal history of other malignant neoplasm of skin; Z79.899 Other long term (current) drug therapy; Z79.82 Long term (current) use of aspirin
CPT/HCPCS: 71010; 76705; 80048; 82550; 82552; 83690; 84484; 85025; 93005; 99285; G0378